=== PATIENT | male | born 1995 | race Asian ===

== ENCOUNTER 2024-03-04 08:29 | Outpatient (CLI) | payer BC | END 2024-03-04 08:30 | disposition home or self-care (01) | LOC: MRI 08:29 | PROVIDERS: ATTEND Family Medicine | DX: S82.122A Displaced fracture of lateral condyle of left tibia, initial encounter for closed fracture (principal); S89.92XA Unspecified injury of left lower leg, initial encounter; M25.462 Effusion, left knee; S92.152A Displaced avulsion fracture (chip fracture) of left talus, initial encounter for closed fracture; S86.111A Strain of other muscle(s) and tendon(s) of posterior muscle group at lower leg level, right leg, initial encounter ==